=== PATIENT | female | born 1940 | race Caucasian/White ===

== ENCOUNTER 2017-07-08 08:31 | Day surgery (SDC) | END 2017-07-08 18:25 | disposition home or self-care (01) ==

== ENCOUNTER → 2017-07-21 | Outpatient (CLI) | END | disposition home or self-care (01) ==

== ENCOUNTER → 2017-09-01 | Outpatient (CLI) | END | disposition home or self-care (01) ==

== ENCOUNTER 2017-09-10 12:07 | Inpatient (IN) | END 2017-09-22 19:10 | disposition home health service (06) | DRG 330 ==